=== PATIENT | female | born 1955 ===

== ENCOUNTER 2021-12-07 08:15 | Inpatient (IN) | payer OTHER ==
[~2021-12-07] VITALS: Ht 165.1 cm; Wt 103.9 kg
[2021-12-07] MEDS ORDERED: COZAAR100 MG PO (09:53)
[2021-12-07] MEDS ORDERED: PROTONIX40 M1 PO (09:54)
[2021-12-07] MEDS ORDERED: ALBUTER IH (09:55)
[2021-12-07] MEDS ORDERED: SINGULAIR10 MG PO (09:55)
[2021-12-07] MEDS ORDERED: SYMBICORT 16010.2 GM IH (09:55)
[2021-12-07] MEDS ORDERED: CARV PO (10:25)
[2021-12-12] MEDS ORDERED: CARVEDILOL6.25 M1 (08:41)
[2021-12-12] MEDS ORDERED: PROAIR HFA8.5 GM ×2 (08:41→08:42)
[2021-12-12] MEDS ORDERED: ALBUTEROL SULFAT4 MG (08:41)
[2021-12-12] MEDS ORDERED: PRESERVISION A1 EAC1 (08:42)
[2021-12-12] MEDS ORDERED: ROSUVASTATIN CA10 MG (08:42)
[2021-12-14] MEDS ORDERED: PERCOCET 5-3251 EACH PO (16:25)
[2021-12-14] MEDS ORDERED: ELIQUIS2.5 MG PO (16:25)
[2021-12-14] MEDS ORDERED: DUI500 PO (16:25)
== END 2021-12-14 21:19 | DRG 470 ==
LOC: O/R 12-12 05:00 → SURH 12-12 05:00 → SURG 12-12 07:00 → SURH 12-12 10:42
PROVIDERS: ADMIT Orthopaedic Surgery; ATTEND Orthopaedic Surgery
PROC: 3E0F7GC Introduction of Other Therapeutic Substance into Respiratory Tract, Via Natural or Artificial Opening (ICD-10-PCS; 2021-12-12)
PROC: 0SRD0J9 Replacement of Left Knee Joint with Synthetic Substitute, Cemented, Open Approach (ICD-10-PCS; principal; 2021-12-12 07:00)
DX: M17.12 Unilateral primary osteoarthritis, left knee (principal); D62 Acute posthemorrhagic anemia; Z20.822 Contact with and (suspected) exposure to COVID-19; M22.12 Recurrent subluxation of patella, left knee; J45.909 Unspecified asthma, uncomplicated